=== PATIENT | male | born 1980 | race Caucasian/White ===

== ENCOUNTER 2016-11-24 20:05 | Emergency (ER) | payer SELFPAY ==
[~2016-11-24] VITALS: Ht 172.7 cm; Wt 77.6 kg
[~2016-11-24 20:05] MED LIST: AUGMENTIN875 MG PO; INDOCIN25 MG PO; LIDOCAINE20 MG/1 M5 PO; PREDNISONE50 MG PO
[2016-11-24] MEDS ORDERED: PEN-VEE K,VEET500 MG PO (20:46)
[2016-11-24 21:34] VITALS: BP 126/97
== END 2016-11-24 21:35 | disposition home or self-care (01) ==
LOC: EME 20:05
DX: K08.89 Other specified disorders of teeth and supporting structures (principal); F17.200 Nicotine dependence, unspecified, uncomplicated
CPT/HCPCS: 99281; 99283

== ENCOUNTER 2017-08-25 22:58 | Emergency (ER) | payer OTHER ==
[~2017-08-25] VITALS: Ht 172.7 cm; Wt 76.5 kg
[~2017-08-25 22:58] MED LIST changes: +PEN-VEE K,VEET500 MG PO
[2017-08-26] MEDS ORDERED: AMOXICILLIN500 MG PO (00:39)
[2017-08-26] MEDS ORDERED: DELTASONE20 M1 PO (00:39)
[2017-08-26 00:57] VITALS: BP 131/91
== END 2017-08-26 01:01 | disposition home or self-care (01) ==
LOC: EME 22:58
DX: J32.0 Chronic maxillary sinusitis (principal); R10.9 Unspecified abdominal pain; H92.09 Otalgia, unspecified ear; F17.200 Nicotine dependence, unspecified, uncomplicated
CPT/HCPCS: 99281; 99283